=== PATIENT | male | born 1955 | race Caucasian/White ===

== ENCOUNTER → 2016-11-29 | Outpatient (CLI) | payer OTHER ==
--- NOTE | 2016-11-29 14:00 | PCVCIMAG ---
APPROVED REPORT Study performed: 11/29/2016 10:24:07 EXAM: Comprehensive 2D, Doppler, and color-flow Echocardiogram Patient Location: Echo lab Status: routine Other Information Study Quality: Good 2D Dimensions LVEF(%): 42.17 (>50%) IVSd: 11.31 (7-11mm)LVOT Diam: 21.24 (18-24mm) LVDd: 31.42 mm PWd: 9.41 (7-11mm)Ascending Ao: 32.90 (22-36mm) LVDs: 25.15 (25-40mm) Left Atrium: 29.41 (27-40mm) Aortic Root: 31.41 mm LV Single Plane 2CH: 63.58 %Wilson's LVEF: 42.17 % Volumes Left Atrial Volume (Systole) Single Plane 4CH: 26.69 mLSingle Plane 2CH: 26.07 mL Aortic Valve AoV Peak Isrrael.: 1.17 m/s AO Peak Gr.: 5.49 mmHgLVOT Max P.41 mmHg LVOT Max V: 0.92 m/s JOSELUIS Vmax: 2.79 cm2 Mitral Valve E/A Ratio: 0.6 MV Decel. Time: 144.75 ms MV E Max Isrrael.: 0.53 m/s MV A Isrrael.: 0.89 m/s Pulmonary Valve PV Peak Gr.: 1.62 mmHg Pulmonary Vein P Vein S: 0.79 m/sP Vein A: 0.45 m/s P Vein D: 0.26 m/sP Vein A Dur.: 62.3 msec P Vein S/D Ratio: 3.04 Tricuspid Valve TR Peak Isrrael.: 1.90 m/s TR Peak Gr.: 14.39 mmHg Left Ventricle The left ventricle is normal size. There is normal LV segmental wall motion. There is normal left ventricular wall thickness. Left ventricular systolic function is normal. The left ventricular ejection fraction is within the normal range. LVEF is 60%. The left ventricular diastolic function is normal. Right Ventricle The right ventricle is normal size. The right ventricular systolic function is normal. Atria The left atrium size is normal. The right atrium size is normal. Aortic Valve The aortic valve is normal in structure. No aortic regurgitation is present. There is no aortic valvular stenosis. Mitral Valve The mitral valve is normal in structure. There is no mitral valve regurgitation noted. No evidence of mitral valve stenosis. Tricuspid Valve The tricuspid valve is normal in structure. There is trivial tricuspid valve regurgitation noted. Pulmonic Valve The pulmonary valve is normal in structure. There is no pulmonic valvular regurgitation. Great Vessels The aortic root is normal in size. IVC is normal in size and collapses with >50% inspiration Pericardium There is no pericardial effusion. <Conclusion> Left ventricular systolic function is normal. There is normal LV segmental wall motion. LVEF is 60%. The aortic valve is normal in structure. No aortic regurgitation or stenosis. The mitral valve is normal in structure. No mitral valve regurgitation noted. Pulmonary artery pressure of 20mmHg There is no pericardial effusion.
== END | disposition home or self-care (01) ==
LOC: PCVCIMAG 10:17
PROVIDERS: ATTEND Internal Medicine
DX: I07.1 Rheumatic tricuspid insufficiency (principal)
CPT/HCPCS: 93017; 93306